=== PATIENT | female | born 1945 | race African-American/Black ===

== ENCOUNTER → 2017-05-17 | Outpatient (CLI) | payer MEDICARE, OTHER ==
[~2017-05-17] MED LIST: ALBUTEROL 0.5ML INH; ALBUTEROL17 GM; ALBUTEROL20 ml INH; AMARYL; AMLODIPINE BESYL5 MG PO; ATENOLOL; ATORVASTATIN CA10 MG PO; BETAPACE; CLONIDINE; CLONIDINE HCL0.1 MG PO; CLONIDINE PO; GLUCOPHAGE XR500 MG; HYZAAR 100-25 T1 TAB; LANTUS100 U/ML; LASIX; LASIX20 MG PO; LISINOPRIL-HCTZ1 T15 PO; METFORMIN HCL750 MG PO; METOPROLOL SUC100 MG PO; MICRO-K; NOVOLOG MI100 UNIT/1; PERCOCET5/325 PO; PIOGLITAZONE15 MG PO; SYMBICORT INH
--- NOTE | ~2017-05-17 | MY29 ---
[facility] A Service of [facility] RADIOLOGY TEXT RESULTS PATIENT: CORIN DING LOCATION: [facility] : 47 UNIT #: [id number] AGE: [address]: Devan Flores MD SEX: F ORDER DR: [id number] [facility] [address] [place], [place] [address] [id number] O MR#: [id number] Acc #: [id number] NAME: CORIN DING : 1945 SEX: F STUDY DATE/TIME: 05/17/2017 12:49 UNIT: [facility] ROOM: STUDY DESCRIPTION: MY GIOVANNY SCREENING W/ CAD BILAT Attending Physician: Devan Flores M.D. Referring Physician: Devan Flores M.D. Ordering Physician: Devan Flores M.D. Primary Care Physician: Devan Flores M.D. MEDICAL IMAGING REPORT This report is preliminary unless electronic signature is present EXAM Digital screening mammogram 05/17/2017 HISTORY 71-year-old woman, no risk elevation. Annual screening. COMPARISON STUDIES Comparison mammograms date to 10/20/2005 with most recent 05/19/2016. FINDINGS Digital imaging of each breast was completed utilizing screening protocol. Review includes FDA-approved CAD device. Breast parenchyma is predominantly fatty replaced. Small circumscribed benign nodule is stable, right subareolar location. Calcifications with benign characteristics again noted in each breast. There is no suspicious mass. I see no interval occurring suspicious microcalcifications and no architectural deformity. IMPRESSION Stable benign mammogram. Annual screening recommended. BIRADS: 2 Benign Finding. Patients over the age of 40 are entered into a reminder system with target due date for the next mammogram. A result letter will also be sent to the patient. Dictated by... Castro Harris M.D. THIS IS AN ELECTRONICALLY VERIFIED REPORT Castro Harris M.D. at 05/18/2017 8:03 AM [facility] A Service of [facility] RADIOLOGY TEXT RESULTS PATIENT: CORIN DING LOCATION: [facility] : 47 UNIT #: [id number] AGE: [address]: Devan Flores MD SEX: F ORDER DR: RENETTA/tru TD: 05/17/2017 21:45 JOB #: [id number] MEDICAL IMAGING REPORT Page 1 of 1 COPY
== END | disposition home or self-care (01) ==
LOC: CWCC 12:18
DX: Z12.31 Encounter for screening mammogram for malignant neoplasm of breast (principal)
CPT/HCPCS: G0202